=== PATIENT | female | born 1990 | race Caucasian/White ===

== ENCOUNTER 2024-09-04 15:08 | Inpatient (IN) | payer OTHER, SELFPAY ==
[2024-09-04] VITALS (7 sets, daily range): BP systolic 126–193; BP diastolic 68–110; BMI 42.9
--- NOTE | 2024-09-04 12:49 | ED.GENMED ---
History of Present Illness
General
Chief Complaint: Breathing Problem
Source: patient
Exam Limitations: none
Time Seen by Provider: 09/04/24 12:40
Nursing documentation reviewed up to this point in time: agreed with
History of Present Illness
History of Present Illness:
33-year-old female with a past medical history of asthma, hypothyroidism, ADHD, bipolar disorder obesity who presents to the emergency department for evaluation of shortness of breath. Patient reports notable recent history of admission through
[facility] 1 month ago for strep throat and sepsis. She says she was treated with antibiotics and completed a full course of Augmentin. She also completed a course of steroids. After that hospitalization she had rebound sore throat
and went to an ENT last week was told she needed her tonsils removed was started on the steroid pack which improved her sore throat. Over the past week however despite taking steroids for sore throat she reports her asthma has been acting up and
she has been using her albuterol more frequently. She says that she is having frequent coughing, wheezing and shortness of breath. Today she says that she felt that she could not breathe despite using multiple albuterol nebulizers. She went to
see her primary care physician and was told that she should come to the emergency room. Aside from coughing, wheezing, shortness of breath she reports that she has had some nasal congestion recently and postnasal drip. She says that she has had
some tightness in her chest but no chest pain. She denies any fever since initial admission last month for strep throat. She denies any swelling or pain in the legs. She denies any other complaints.
Review of Systems
Review of Systems
All Other Systems: ROS reviewed and negative except as documented in HPI and ROS
Constitutional: Denies fever or chills
EENT: Reports other (Congestion and postnasal drip); Denies sore throat (Sore throat has resolved)
Respiratory: Reports cough and trouble breathing
Cardiac: Denies chest pain or palpitations
ABD/GI: Denies abdominal pain, nausea or vomiting
Musculoskeletal: Denies edema
Phy Exam
Physical Exam
Physical Exam:
General: Awake, alert, oriented x3; anxious appearing and tremulous but in no acute distress
Head: Normocephalic, atraumatic
Eyes: Conjunctiva normal
Throat: Airway intact, handling secretions, no tonsillar erythema or exudate noted
Neck: Trachea midline, no JVD
Lungs: Patient has mild tachypnea, normal pulse ox, frequent coughing and occasional expiratory wheeze on lung auscultation
Heart: Tachycardia with ostensibly regular rhythm, no murmurs, gallops, or rubs
Neuro: No gross deficits; tremulous
Skin: no rash
Extremities: No edema in extremities, warm and well-perfused
Scores
Heart Failure Risk
Heart Failure Risk Score: Not Applicable
Heart Score for Chest Pain Patients
STEMI patient?: Not applicable
Withdrawal Assessment of Alcohol
Withdrawal Assessment Completed?: Not applicable
Course
Orders/Labs/Results
Orders:
Orders
09/04/24 Breakfast
Regular
At Your Request: Full Participation
09/04/24 12:15
Electrocardiogram (*1) Urgent
Reason for Study: Tachycardia
EKG- Treatment ONCE
09/04/24 12:40
Test Result ONCE
09/04/24 12:46
COVID-19 Antigen Urgent
Source: Nasal Swab
Complete Blood Count/With Diff Urgent
Comprehensive Metabolic Panel Urgent
D-Dimer Urgent
HCG, Serum Qualitative Screen Urgent
Magnesium Urgent
Influenza A+B Rapid Molecular Urgent
CARLOS ENRIQUE Source: Nasal Swab
Specimen Description:
09/04/24 12:49
0.9% Sodium Chloride 1000 ml [Nss] 1,000 ml IV BOLUS
09/04/24 12:54
CR Chest Portable - 1 View Urgent
Comment:
Reason For Exam: sob
Reason Study Needs to be Portable: Unable to Transport
09/04/24 12:57
MethylPREDNISolone PF [Solu-Medrol Pf] 125 mg IV NOW STA
09/04/24 13:00
Venous Blood Gas Urgent
%Oxygen/Room Air: 96
09/04/24 13:01
Lorazepam [Ativan] 0.5 mg IV NOW STA
09/04/24 13:46
Magnesium Sulfate 2 Gram/50 ml [Magnesium Sulfate] 2 gram in 50 ml IV NOW
09/04/24 14:17
Albuterol Nebs [Ventolin Nebules] 2.5 mg INH R NOW STA
Lidocaine HCl Mpf [Xylocaine 4% Mpf] 2 ml NEB ONCE ONE
09/04/24 14:40
Admit/Transfer Patient As Directed
Co-Sign Provider:
Level of Care: Inpatient admission
Assign to:: Telemetry
Physician / Group: Sabrina
Diagnosis: Asthma Exacerbation
Reason for Telemetry: Arrhythmia
Date to Stop Telemetry: 09/07/24
Time to Stop Telemetry: 11:00
Reason for Hospitalization: Steroids, Nebs
Expected length of stay greater than two midnights?: Yes
ELOS- Estimated Length of Stay in days: 3
I certify the patient meets the requirements for IP care: Yes
PRN Pain Medication Management As Directed
May give lesser potent ordered pain med per pt: Yes
preference::
Protocol:: Medication orders for pain may be administered in a
manner that supports deferring to patient preference
when the pt is:
- Requesting an ordered lesser potent pain medication.
Least to most potent pain medications are defined
as: acetaminophen < NSAID < tramadol < opioids
(morphine, oxycodone, hydromorphone).
- Requesting a lesser dose of the same medication IF
ORDERED.
- Requesting a less intrusive route of administration
if both routes are prescribed by the provider (PO <
IV).
09/04/24 14:42
Code Status As Directed
Resuscitation Status: Full Code
09/04/24 18:42
Acetaminophen [Tylenol] 650 mg PO Q4HPRN PRN
Benzonatate [Tessalon Perles] 200 mg PO TID
Enoxaparin Sodium [Lovenox] 40 mg SC QPM
Ipratropium/Albuterol Sulfate [Duoneb] 3 ml INH R Q4HPRN PRN
09/04/24 18:42
Activity As Directed
Activity Level: Out of Bed-Early Mobility
With Assistance
Vital Signs As Directed
Frequency: Per unit guidelines
DX Deep Vein Thrombosis Video Routine
09/04/24 20:00
Amoxicillin 875 mg/Clav 125 mg [Augmentin 875 mg/125 mg] 1 tablet PO BID
Budesonide [Pulmicort] 0.5 mg INH R BID
Dexamethasone Sod Phosphate [Decadron] 4 mg IV Q8H
Ipratropium/Albuterol Sulfate [Duoneb] 3 ml INH R QID
Oxcarbazepine [Trileptal] 600 mg PO BID
09/04/24 22:00
Clonidine [Catapres] 0.6 mg PO HS
Temazepam [Restoril] 30 mg PO HS
09/05/24 06:00
Basic Metabolic Panel IN AM
Complete Blood Count/No Diff IN AM
TSH Reflex To Free T4 IN AM
Levothyroxine [Synthroid] 100 mcg PO DAILY @ 0600
09/05/24 08:00
Clonazepam [Klonopin] 1 mg PO DAILY
Diltiazem Extended Release [Cardizem Cd] 180 mg PO DAILY
Famotidine [Pepcid] 40 mg PO DAILY
Montelukast Sodium [Singulair] 10 mg PO DAILY
09/07/24 11:00
DC Protocol for Telemetry ONCE
Abnormal Lab Results
09/04/24 09/04/24
12:46 13:00
WBC 21.2 H 10^3/uL
(4.8-10.8)
MCHC 32.5 L g/dL
(33.0-37.0)
RDW 14.8 H %
(11.5-14.5)
Plt Count 409 H 10^3/uL
(130-400)
Abs Immat Gran (auto) 0.4 H 10^3/uL
(0-0.05)
Absolute Neuts (auto) 12.8 H 10^3/uL
(1.4-6.5)
Absolute Lymphs (auto) 6.6 H 10^3/uL
(1.2-3.4)
Absolute Monos (auto) 1.2 H 10^3/uL
(0.1-0.6)
Immature Gran % 1.7 H %
(0-0.5)
VBG pH 7.53 H
(7.32-7.43)
VBG pCO2 27 L mmHg
(35-48)
VBG pO2 198 H mmHg
(30-50)
Chloride 109 H mmol/L
(98-107)
Carbon Dioxide 18 L mmol/L
(22-30)
09/04/24 12:46
09/04/24 12:46
Vital Signs
Initial and Last Documented VS:
Initial Vital Signs
Temp Pulse Resp BP Pulse Ox
37.0 C 150 18 193/110 98
09/04/24 12:11 09/04/24 12:11 09/04/24 12:11 09/04/24 12:11 09/04/24 12:11
Last Documented Vital Signs
Temp Pulse Resp BP Pulse Ox
37.0 C 123 20 163/107 95
09/04/24 12:11 09/04/24 20:00 09/04/24 20:00 09/04/24 19:39 09/04/24 20:00
MDM/Problems Addressed
Differential Diagnosis Includes:
Asthma exacerbation, pneumonia, pneumothorax, pulmonary embolism
MDM/Problems Addressed:
33-year-old female presents to the emergency department for evaluation of shortness of breath with coughing and wheezing for the past week�acutely worse today and required multiple rounds of albuterol at home. She arrives to us hypertensive with a
blood pressure of 193/110; she is tachycardic with heart rate in the 140s; she is tachypneic breathing in the mid 20s; her pulse ox is normal and she has no fever. Her physical exam is as documented above. I suspect that her marked tachycardia and
tremulousness is due to heavy albuterol use today. EKG shows sinus tachycardia. Will place an IV send labs including a CBC and a CMP, hCG; send viral swabs. Will check D-dimer. Will check stat chest x-ray. Hold on additional albuterol as she
has minimal wheezing at this point. Will treat with IV steroid. Will provide some fluids. Monitor very closely and reassess after the above.
Labs reviewed: CBC shows a leukocytosis to 21 in the setting of known recent steroid use. Her VBG is consistent with hyperventilation�pH 7.53 with a pCO2 of 27. She does appear quite anxious we will treat with some Ativan. Chest x-ray reviewed by
me shows no pneumonia, pneumothorax or other acute pathology. Continue to monitor pending rest of workup.
D-dimer negative. CMP shows mild metabolic acidosis with bicarb of 18. COVID and flu swabs are negative. Clinical reassessment patient coughing again still having scattered wheezing, once again tachypnea/hyperventilation. She still has
tachycardia but this has improved; she says she has tachycardia at baseline. Will give additional albuterol at this point as heart rate has improved and she again has some scattered wheezing. I do wonder if this is a mixed picture as well as she
has had postnasal drip and I think a lot of the coughing could be from upper airway irritation. Can trial lidocaine neb to see if this provides relief. I think there is also component of panic/anxiety/hyperventilation. I do think with her
acid-base abnormalities, continued tachypnea and marked tachycardia she should be admitted for continued treatment. Discussed case with hospitalist.
Chronic conditions affecting care:
Asthma
Acute Exacerbation and/or Progression of Chronic Illness:
Hypertensive
Acute Exacerbation and/or Progression of Chronic Illness: HTN
*Radiology
Radiology exam reviewed: preliminary read by ED provider and radiology read reviewed
*Pulse Oximetry
Patient hypoxic: no
*EKG
Interpreted by ED Provider?: Yes
Heart Rate: 144
Rate: tachycardiac
Rhythm: sinus and sinus tachycardia
Vance: normal axis
Interval: normal interval
QRS Pattern: normal QRS
Ischemia: non-specific ST changes
*Critical Care Note
Total Time (30-74mins, 75-104mins- exclusive of procedures): Not Applicable
Data Reviewed
Source: patient
Patient Management
Discussion with other providers: Hospitalist (Discussed with hospitalist)
Escalation/DeEscalation of care consider admission/obs:
Admission indicated
ED Attending Note
-
Portions of this chart may have been created with voice recognition software.� Occasional wrong word or��sound alike� substitutions may have occurred due to the inherent limitations of voice recognition software.
Discharge Plan
Departure
Patient Disposition: Admit
Date of Disposition: 09/04/24
Time of Disposition: 14:20
Admit to doctor: Sabrina
Presentation/result/management discussed w/ accepting MD/DO: Hospitalist
Discharge Problem:
Asthma exacerbation, Anxiety, Post-nasal drip, Tachycardia
Interventions
Interventions:
*Risk Screen - Suicide Last Done: 09/04/24 12:14
*General Assessment Last Done: 09/04/24 12:44
*Neglect/Abuse Screening Last Done: 09/04/24 12:14
*ED- Fall Risk Assessment Last Done: 09/04/24 12:44
*ED COVID-19 Vaccine History Last Done: 09/04/24 12:44
ED- Cardiac Assessment Last Done: 09/04/24 12:46
ED- Pulmonary Assessment Last Done: 09/04/24 12:46
[2024-09-04 13:01] LABS: COVID-19 Antigen Negative (Negative)
[2024-09-04] MEDS: SOLU-MEDROL PF 125 MG IV (13:15)
[2024-09-04] MEDS: NSS 1000 IV (13:15)
[2024-09-04] MEDS: ATIVAN 0.5 MG IV (13:15)
[2024-09-04 13:17] LABS: Venous Blood Gas B.E. 1.1 mmol/L (-4 to +4); Venous Blood Gas HCO3 22.6 mmol/L (22-27); Venous Blood Gas O2 Sat % 99.5 %; Venous Blood Gas pCO2 27 mmHg (35-48); Venous Blood Gas pH 7.53 (7.32-7.43); Venous Blood Gas pO2 198 mmHg (30-50)
[2024-09-04 13:17] LABS: % Basophils 0.4 % (0-2); % Eosinophils 0.7 % (0-6); % Immature Granulocytes 1.7 % (0-0.5); % Lymphocytes 30.9 % (20.5-51.1); % Monocytes 5.7 % (1.7-9.3); % Neutrophils 60.6 % (42.2-75.2); Absolute Basophils 0.1 10^3/uL (0-0.2); Absolute Eosinophils 0.2 10^3/uL (0-0.7); Absolute Immature Granulocytes 0.4 10^3/uL (0-0.05); Absolute Lymphocytes 6.6 10^3/uL (1.2-3.4); Absolute Monocytes 1.2 10^3/uL (0.1-0.6); Absolute Neutrophils 12.8 10^3/uL (1.4-6.5); Hematocrit 39.7 % (37.0-47.0); Hemoglobin 12.9 g/dL (12.0-16.0); Mean Corp Hgb Conc. 32.5 g/dL (33.0-37.0); Mean Corpuscular Hgb 29.5 pg (27.0-31.0); Mean Corpuscular Volume 90.6 fL (81.0-99.0); Mean Platelet Volume 8.9 fL (7.4-10.4); Nucleated Red Blood Cells % 0 %; Platelet Count 409 10^3/uL (130-400); Red Blood Cell Count 4.38 10^6/uL (4.20-5.40); Red Cell Dist. Width 14.8 % (11.5-14.5); White Blood Cell Count 21.2 10^3/uL (4.8-10.8)
[2024-09-04 13:31] LABS: D-Dimer < 0.27 ug/mlFEU (0.00-0.50)
[2024-09-04 13:35] LABS: HCG, Serum Qualitative Screen Negative
[2024-09-04 13:40] LABS: ALT (SGPT) 26 U/L (0-35); AST (SGOT) 23 U/L (14-36); Albumin 4.6 g/dl (3.5-5.0); Alkaline Phosphatase 78 U/L (38-126); Blood Urea Nitrogen 16 mg/dl (7-17); Calcium 9.4 mg/dl (8.4-10.2); Carbon Dioxide 18 mmol/L (22-30); Chloride 109 mmol/L (98-107); Glucose 96 mg/dl (70-99); Magnesium 1.7 mg/dl (1.6-2.3); Potassium 3.7 mmol/L (3.5-5.1); Sodium 141 mmol/L (135-145); Total Bilirubin 0.4 mg/dl (0.2-1.3); Total Protein 7.7 g/dl (6.3-8.2); eGFR > 60.00
[2024-09-04] MEDS: MAGNESIUM SULFATE 50 IV (13:50)
--- NOTE | 2024-09-04 14:46 | HPS.HSE ---
Family Physician
-
Family Physician: Bogdan Sharma
Chief Complaint
-
Cough and Shortness of Breath
History of Present Illness
Patient is a 33 y/o female past medical history of asthma, hypothyroidism, bipolar disorder and obesity who presents with persistent cough. Patient reports about one month ago she was admitted at [place] for sepsis secondary to strep throat for
which she completed a coarse of antibiotics and was treated with steroids. Afterwards she developed rebound sore throat at which time she went to urgent care and was also seen by ENT. She was again given antibiotics and steroids. She notes
improvement in her sore throat but reports increased coughing. She notes frequent coughing attacks which cause her to feel short of breath. She expresses concern that this may be related to her asthma. She denies fevers, sweats or chills. She
denies lower extremtiy edema, pain or swelling. She denies chest pain.
Medical History
Past Medical History
Past Medical History: Reports Other
Additional Past Medical History:
Asthma
Sinus Tachycardia
Hypothyroidism
Bipolar Disorder
ADHD
Obesity
Past Surgical History: Reports Other
Additional Past Surgical History:
Cholecystectomy
[place] Teeth
Social History
Tobacco: Former Smoker (Quit 3 years ago)
Family History
Family History: Not pertinent
Allergies / Home Medications
Allergies reflects when Allergies were last updated in [facility].
Home Medications with original date entered in [facility]
Allergy/Medication List:
Allergies
Allergy/AdvReac Type Severity Reaction Status Date / Time
acetaminophen (From Percocet) Allergy Unknown Verified 09/04/24 12:13
hydromorphone (From Dilaudid) Allergy Vomiting Verified 09/04/24 12:13
oxycodone (From Percocet) Allergy Unknown Verified 09/04/24 12:13
Home Medications
amoxicillin 875 mg-potassium clavulanate 125 mg tablet 1 tab PO BID 09/04/24
cholecalciferol (vitamin D3) 125 mcg (5,000 unit) tablet (Vitamin D3) 125 mcg PO DAILY 09/04/24
clonazepam 1 mg tablet 1 mg PO DAILY 09/04/24
clonidine HCl 0.2 mg tablet 0.6 mg PO HS 09/04/24
diltiazem HCl 180 mg capsule,extended release 24 hr 180 mg PO DAILY 09/04/24
famotidine 40 mg tablet (Pepcid) 40 mg PO DAILY 09/04/24
levothyroxine 100 mcg tablet (Synthroid) 100 mcg PO DAILY 09/04/24
methylprednisolone 4 mg tablets in a dose pack (Medrol (Gilberto)) 0 mg PO PER PKG DIR 09/04/24
montelukast 10 mg tablet (Singulair) 10 mg PO DAILY 09/04/24
olopatadine 665 mcg-mometasone 25 mcg/spray nasal spray (Ryaltris) 2 spray intranasal BID 09/04/24
oxcarbazepine 600 mg tablet 600 mg PO BID 09/04/24
temazepam 30 mg capsule 30 mg PO HS 09/04/24
therapeutic multivitamin 1 tab PO DAILY 09/04/24
Review of Systems
-
History Source: Patient
A 12 point ROS was completed and negative except as noted: Yes
Constitutional: Denies Fever or Chills
Respiratory: Reports See HPI
Cardiac: Reports Palpitations; Denies Chest Pain
Physical Exam
Vital Signs
Vital Signs
Temp Pulse Resp BP Pulse Ox
98.6 F 122 18 126/68 95
09/04/24 12:11 09/04/24 13:45 09/04/24 13:30 09/04/24 13:07 09/04/24 13:30
Physical Exam
General: Well Developed, Well Nourished and Obese
HEENT: Anicteric and Moist mucous membranes
Respiratory: Other (Slight tachypnea, Frequent coughing particularly with deep inspiration or prolonged conversation, Occasional expiratory wheeze on exam)
Cardiac: S1/S2, Regular Rhythm and Tachycardia
GI: Soft and Non Tender
Rectal: Deferred by Provider
Musculoskeletal: No Clubbing, No Cyanosis and No Edema
Skin: Warm and Dry
Neuro: Awake, Alert, Oriented and Nonfocal/grossly intact
Psych: Calm
Laboratory Results
-
09/04/24 12:46
09/04/24 12:46
Laboratory Results
Total Bilirubin 0.4 mg/dl (0.2-1.3) 09/04/24 12:46
AST 23 U/L (14-36) 09/04/24 12:46
ALT 26 U/L (0-35) 09/04/24 12:46
Alkaline Phosphatase 78 U/L (38-126) 09/04/24 12:46
Data Reviewed
-
Diagnostic Radiology: Report Reviewed by me
Lab Data: Labs Reviewed by me
Impression/Plan
-
Acute Exacerbation of Cough-Variant Asthma
-Continue Decadron 4mg q8H
-Continue DuoNeb QID and PRN
-Change Dulera to Pulmicort Neb
-Add Tessalon Perles TID
Leukocytosis, possibly related to steroids
-Continue to trend
-Monitor for fevers - Obtain cultures if develops fever
Recent Tonsillitis
-Continue Augmentin as preciously prescribes
Sinus Tachycardia
-Continue diltiazem as prior to admission
Hypothyroidism
-Continue levothyroxine
Bipolar Disorder
-Continue Clonazepam, Temazepam and Oxcarbazepine
Morbid Obesity due to Excess Calories
-Affects all aspects of care
DVT proph: Lovenox
Code Status: Full Code
[2024-09-04] MEDS: VENTOLIN NEBULES 2.5 MG INH (15:40)
--- NOTE | 2024-09-04 15:53 | W.PN.UPDATE ---
Update Note
Progress Note Update
This is an addendum to H&P written by Emma Weir on 09/04/2024.� Patient seen and examined independently with PA.
33-year-old female past medical history of asthma, hypothyroidism, ADHD, bipolar disorder, obesity presenting with shortness of breath, cough and wheezing.� Has postnasal drip and nasal congestion.
Admitted to [facility] 1 month ago for strep throat and sepsis treated with antibiotic and steroid.� Afterwards had rebound sore throat went to ENT and told she needed her tonsils removed and was treated with steroids again. Curently still on Abx.�
Blood pressure initially 190s.� Patient tachycardic.
Chest x-ray shows no acute process.
Labs show leukocytosis.� VBG shows acute respiratory alkalosis due to tachypnea.� COVID and flu are negative.
Patient with acute asthma exacerbation.
Magnesium, methylprednisolone given.
DuoNebs, dexamethasone. Continue Abx for tonsillitis.�
[2024-09-04] MEDS: DECADRON 4 MG IV (19:14)
[2024-09-04] MEDS: TESSALON PERLES 200 MG PO (19:14)
[2024-09-04] MEDS: AUGMENTIN 875 MG/125 MG 1 TABLET PO (19:14)
[2024-09-04] MEDS: DUONEB 3 ML INH (19:15)
[2024-09-04] MEDS: TRILEPTAL 600 MG PO (19:34)
[2024-09-04] MEDS: PULMICORT 0.5 MG INH (19:47)
[2024-09-04] MEDS: LAMICTAL 200 MG PO (20:09)
[2024-09-04] MEDS: TESSALON PERLES PO (20:14)
[2024-09-04] MEDS: RESTORIL 30 MG PO (21:01)
[2024-09-04] MEDS: KLONOPIN 1 MG PO (21:01)
[2024-09-04] MEDS: CATAPRES 0.6 MG PO (21:01)
--- NOTE | 2024-09-04 23:14 | PTCARENOTE ---
Receive pt from ER. Pt alert oriented X3, calm, in no resp distress. Pt assist X1 to bed, steady gait. Pt oriented to the room, call richard within reach. Pt's SpO2=96% on RA. Pt w/tachycardia, QQ=009. VU=364/95, T=97.7, RR=20. Pt on S. Tachycardia on
telemonitor. Lungs are clear on physical exam except for some wheezings. Pt states that she experiences mild burning sensation in her throat, but she reports that she doesn't need any medication at this time. Advice the pt to call if she experiences
SOB, or difficulty breathing.
[2024-09-04] MEDS: ROBITUSSIN 100 MG PO (23:20)
[2024-09-05 03:19] VITALS: BP 137/80
[2024-09-05] MEDS: DUONEB 3 ML INH ×3 (04:06→11:25)
[2024-09-05] MEDS: DECADRON 4 MG IV (04:13)
[2024-09-05] MEDS: ROBITUSSIN 100 MG PO (04:17)
[2024-09-05] MEDS: SYNTHROID 100 MCG PO (05:36)
[2024-09-05 07:00] VITALS: BP 152/91
[2024-09-05] MEDS: PULMICORT 0.5 MG INH (07:36)
[2024-09-05 07:47] LABS: Hematocrit 36.6 % (37.0-47.0); Hemoglobin 12.2 g/dL (12.0-16.0); Mean Corp Hgb Conc. 33.3 g/dL (33.0-37.0); Mean Corpuscular Volume 89.9 fL (81.0-99.0); Mean Platelet Volume 9.3 fL (7.4-10.4); Platelet Count 413 10^3/uL (130-400); Red Blood Cell Count 4.07 10^6/uL (4.20-5.40); Red Cell Dist. Width 15.2 % (11.5-14.5); White Blood Cell Count 16.6 10^3/uL (4.8-10.8)
[2024-09-05] MEDS: CARDIZEM CD 180 MG PO (07:55)
[2024-09-05] MEDS: AUGMENTIN 875 MG/125 MG 1 TABLET PO (07:55)
[2024-09-05] MEDS: TESSALON PERLES 200 MG PO (07:55)
[2024-09-05] MEDS: SINGULAIR 10 MG PO (07:56)
[2024-09-05] MEDS: TRILEPTAL 600 MG PO (07:56)
[2024-09-05] MEDS: PEPCID 40 MG PO (07:56)
[2024-09-05] MEDS: LAMICTAL 200 MG PO (07:56)
[2024-09-05 08:47] LABS: Blood Urea Nitrogen 14 mg/dl (7-17); Calcium 9.6 mg/dl (8.4-10.2); Carbon Dioxide 19 mmol/L (22-30); Chloride 107 mmol/L (98-107); Estimated Creatinine Clearance > 125 ml/min; Glucose 123 mg/dl (70-99); Potassium 4.7 mmol/L (3.5-5.1); Sodium 139 mmol/L (135-145); eGFR > 60.00
[2024-09-05 09:03] LABS: Free T4 0.86 ng/dl (0.78-2.19)
--- NOTE | 2024-09-05 10:30 | PTCARENOTE ---
Patient found in family lounge having a panic attack. Hyperventilating and tearful with HR in 170s. Staff assisted patient with calming/breathing techniques. Patient brought back to room. Dr Jarrell made aware of event and ordered 1x dose IV ativan.
Will continue to monitor.
[2024-09-05] MEDS: NSS (PRESERVATIVE FREE) 0.25 ML IV (10:41)
[2024-09-05] MEDS: ATIVAN 0.5 MG IV (10:41)
[2024-09-05 11:00] VITALS: BP 155/95
--- NOTE | 2024-09-05 11:26 | CM ---
recreational resort manager reviewed patient's chart and met with patient and patient states she lives with her spouse in a 1 story home, patient is independent with adl's and ambulation, patient has a nebulizer in home. Home when stable no needs.
PCP: Bogdan Sharma
Pharmacy: [facility]
Plan; Home when stable, no needs.
--- NOTE | 2024-09-05 11:59 | PTCARENOTE ---
Dr Jarrell and nursing saw patient. Discussed patient being medically cleared for DC after pulmonary consult. Dr Jarrell reinforced that patient needs to make sooner appointment with ENT outpatient. Patient verbalized understanding plan of care.
[2024-09-05] MEDS: DECADRON IV (13:18)
--- NOTE | 2024-09-05 13:54 | CON.PUL ---
Consultation
Consultation Request
Date/Time Consultation Requested: 09/05/2024
Date/Time Consultation Performed: 09/05/2024
Requesting Provider: Dr. Jarrell
Performing Provider: Dr. Teto Porras
Reason for Consultation: Exertional dyspnea
Medical History
-
History of Present Illness:
33-year-old woman with past medical history of asthma, hypothyroidism, bipolar disorder, obesity who presents with persistent coughing. Patient reports history of Streptococcus pharyngitis completed course of antibiotics and steroids about a month
ago at [facility].
Apparently after discharge developed again sore throat and she was seen by ENT in the outpatient setting.
Received a second dose of antibiotics and steroids.
Reports increased coughing.
Reports cough paroxysms with subsequent shortness of breath.
There is no reports of fevers, chills, hemoptysis, swallowing problems or GERD.
Denies exertional chest pain.
We were consulted on 09/05/2024 for evaluation of her coughing.
Past Medical History
Past Medical History: Other (See assessment and plan section)
Social History
Tobacco: Former Smoker (Quit 3 years ago)
Alcohol: None
Drug: None
Family History
Family History: Reviewed & Not Pertinent
Allergies / Home Medications
Allergies
Allergy/AdvReac Type Severity Reaction Status Date / Time
acetaminophen (From Percocet) Allergy Unknown Verified 09/04/24 12:13
hydromorphone (From Dilaudid) Allergy Vomiting Verified 09/04/24 12:13
oxycodone (From Percocet) Allergy Unknown Verified 09/04/24 12:13
Home Medications
�Medication �Instructions �Recorded �Confirmed �Last Taken �Type
amoxicillin 875 mg-potassium 1 tab PO BID Infection 09/04/24 09/04/24 09/04/24 History
clavulanate 125 mg tablet
cholecalciferol (vitamin D3) 125 125 mcg PO DAILY Supplement 09/04/24 09/04/24 09/04/24 History
mcg (5,000 unit) tablet (Vitamin
D3)
clonazepam 1 mg tablet 1 mg PO HS Mental Health/Anxiety 09/04/24 09/04/24 09/03/24 History
clonidine HCl 0.2 mg tablet 0.6 mg PO HS Heart 09/04/24 09/04/24 09/03/24 History
Disease/Condition
diltiazem HCl 180 mg 180 mg PO DAILY Heart 09/04/24 09/04/24 09/04/24 History
capsule,extended release 24 hr Disease/Condition
famotidine 40 mg tablet (Pepcid) 40 mg PO DAILY Gastrointestinal 09/04/24 09/04/24 09/04/24 History
Issue
lamotrigine 200 mg tablet 200 mg PO BID Seizures 09/04/24 09/04/24 09/04/24 History
levothyroxine 100 mcg tablet 100 mcg PO DAILY Thyroid 09/04/24 09/04/24 09/04/24 History
(Synthroid)
methylprednisolone 4 mg tablets in 0 mg PO PER PKG DIR inflammation 09/04/24 09/04/24 09/04/24 History
a dose pack (Medrol (Gilberto))
montelukast 10 mg tablet 10 mg PO DAILY asthma 09/04/24 09/04/24 09/04/24 History
(Singulair)
olopatadine 665 mcg-mometasone 25 2 spray intranasal BID Congestion 09/04/24 09/04/24 Unknown History
mcg/spray nasal spray (Ryaltris)
oxcarbazepine 600 mg tablet 600 mg PO BID Seizures 09/04/24 09/04/24 09/04/24 History
temazepam 30 mg capsule 30 mg PO HS Sleep 09/04/24 09/04/24 09/03/24 History
therapeutic multivitamin 1 tab PO DAILY Supplement 09/04/24 09/04/24 09/04/24 History
Review of Systems
-
History Source: Patient
All other systems: Negative unless noted
Vitals / Labs / Diagnostic Testing
Vital Signs
Temp Pulse Resp BP Pulse Ox
98.4 F 102 20 155/95 97
09/05/24 11:00 09/05/24 12:06 09/05/24 12:06 09/05/24 11:00 09/05/24 12:06
Lab Data
09/05/24 06:39
09/05/24 06:39
Microbiology
09/04/24 12:46 Nasal Swab Influenza Types A & B (DEDRICK) - Final
Negative for Influenza A & B, NAAT
Negative results must be combined with clinical observations
and patient history.
Nucleic Acid Amplification test (NAAT)performed on the
[employer] platform.
Diagnostic Testing:
Physical Exam
-
HEENT: Normocephalic
Cardiovascular: S1/S2
Respiratory: Clear, Non-Labored Respirations and Other (Good air movement)
GI: Soft and Non Distended
Neurology: Awake, Alert, Oriented, AO x 3 and No Motor Deficits
Skin: Warm
General: Respiratory Distress (n) and Comfortable
Assessment
-
33-year-old woman with past medical history significant for? Asthma, hypothyroidism, ADHD, bipolar disorder, obesity who presented to the emergency room complaining of shortness of breath, cough and wheezing. Also nasal congestion and postnasal
drip. Patient was placed on steroids, antibiotics for possible pharyngitis and nebulizer therapy. We were consulted for evaluation of her symptoms on 09/05/2024 at the patient request.
Cough/shortness of breath: Possible exacerbation of asthma
Chest x-ray: No acute abnormality-low lung volumes.
No peripheral eosinophilia
Negative influenza/negative COVID
Conditions present prior admission:
History of asthma-cough variant
On singular
Recent history of tonsillitis? [facility]
History of hypothyroidism
Obesity
Bipolar disorder
ADHD
History of sinus tachycardia
Former smoker-quit 3 years ago
Assessment and plan:
Patient main symptom is coughing and sore throat.
Since admission.
Not bronchospastic on exam
Able to speak in full sentences without dyspnea.
-
She carries a diagnosis of asthma-patient has Dulera and Trelegy at home. I advised her to start taking Trelegy starting today.
She has a nebulizer that she can use as needed.
If patient develops coughing with inhaler-advised to call her community health nurse to get budesonide nebulized.
-
Chest x-ray is clear.
Not requiring oxygen supplementation
From the pulmonary perspective no indication for antibiotics.
-
Okay for discharge today.
Advised not to overuse albuterol-she already has some degree of metabolic acidosis. Likely due to albuterol overuse.
Discontinue steroids. No longer bronchospastic. She has been getting steroids for about a month.
No significant peripheral eosinophilia.
She continue to follow with her pulmonary doctor within the next 2 weeks. She follows up with pulmonary group at [place]. Advised to make an appointment as soon as possible.
Continue Singulair for now.
-
Triggers her asthma discussed including obesity, potential obstructive sleep apnea.
With history of bipolar disorder: Vocal cord dysfunction is a diagnosis that should be considered. Agree with outpatient ENT [id number] already has an appointment next Wednesday.
-
Antibiotics at your discretion. Not required from the pulmonary perspective.
-
Okay for discharge from my perspective.
--- NOTE | 2024-09-05 14:28 | W.PN.HOSP.TC ---
Today's Communication/Plan
-
More than 30 minutes spent in discharge including
Final examination of the patient
Summarizing hospital stay
Instructions for continuing care to all relevant caregivers
Preparation of discharge records, prescriptions, and referral forms
Total time spent (in minutes):33mins
Assessment / Plan
Assessment / Plan
NAD
Scleral Anicteric
MMM
No JVD
CTABL
RRR, S1/S2
Morbidly obese, soft, NT, ND, BS+
Warm, Dry
AAOx3
Calm
Suspect what has been ongoing is that she is experiencing some discomfort in her upper airway/throat due to tonsillitis for which she is already on antibiotics for it. This discomfort is causing her to become/feel panic along with/leading to
hyperventilation and eventually full-blown panic attacks which cause shortness of breath and airway wheezing. Acute bronchospasms she makes herself cough.
Acute asthma exacerbation
Resolved
No indication for steroids per pulmonary via [place]
Has been directed by pulmonary to start using Trelegy at home as she has not started using this
If she does not want to use Trelegy can use Symbicort which has been sent to the pharmacy
Tonsillitis continue antibiotics. Outpatient ENT follow-up. Tells me that her appointment has been moved up to 09/11/24
As she requested inpatient ENT follow-up I did place a consult spoke with them via [employer] [facility] recommended to discharge with outpatient ENT follow-up
Hypothyroidism continue levothyroxine
Bipolar disorder
Continue clonazepam temazepam oxcarbazepine
Outpatient psychiatry follow-up
Morbid obesity due to excess calories
Dietary lifestyle modification
Consider GLP-1 in outpatient
Consider bariatric follow-up as an outpatient next
DC home
Anticipated Discharge: Today
Subjective/Interval History
-
Date of Service: September 05, 2024
Seen and examined. No new complaints. No acute overnight events.
Tolerating secretions well along with diet well
Objective Data
-
Labs:
Laboratory Results
09/05/24
06:39
WBC 16.6 H
Hgb 12.2
Hct 36.6 L
Plt Count 413 H
Sodium 139
Potassium 4.7 D
Chloride 107
Carbon Dioxide 19 L
BUN 14
Creatinine 0.7
Glucose 123 H
Calcium 9.6
Vital Signs:
Vital Signs
Temp Pulse Resp BP Pulse Ox
98.4 F 102 20 155/95 97
09/05/24 11:00 09/05/24 12:06 09/05/24 12:06 09/05/24 11:00 09/05/24 12:06
I&O
09/04/24 09/05/24 09/06/24
06:59 06:59 06:59
Intake Total 480 / 480
Balance 480 / 480
--- NOTE | 2024-09-05 14:39 | W.DCSUMMARY ---
Discharge Summary
Discharge Data
Date of Admission: 09/04/24
Date of Discharge: 09/05/24
-
Pending Results: No
Hospital Course
33 y/o female past medical history of asthma, hypothyroidism, bipolar disorder and obesity who presents with persistent cough
Presented with persistent cough found to have a and a respiratory alkalosis along with asthma exacerbation. Improved symptomatology without wheezing on exam the following day. Suspect component of panic attack hyperventilation as there is concern
for discomfort in the throat as she was recently diagnosed with sore throat followed by rebound tonsillitis now currently on antibiotics. This discomfort in the throat causes anxiety eventually leads to panic attack with associated hyperventilation
and acute bronchospasms leading to the wheezing. Per pulm no steroids, start home trelegy.. Have strongly encouraged ENT follow-up as an outpatient and to bring the appointment forward to be seen sooner for evaluation of tonsillectomy. Pulmonary
evaluated no further recommendations outpatient PFTs.
Discharge Plan
-
Patient Disposition: Home (Routine Discharge)
Discharge Diagnosis/Procedures: Asthma exacerbation
Hyperventilation
Panic attacks
Condition: Good
Diet: As tolerated
Activity: As tolerated
Activity Restrictions/Additional Instructions:
Presented with persistent cough found to have a and a respiratory alkalosis along with asthma exacerbation. Improved symptomatology without wheezing on exam the following day. Suspect component of panic attack hyperventilation as there is concern
for discomfort in the throat as she was recently diagnosed with sore throat followed by rebound tonsillitis now currently on antibiotics. This discomfort in the throat causes anxiety eventually leads to panic attack with associated hyperventilation
and acute bronchospasms leading to the wheezing. Per pulm no steroids, start home trelegy.. Have strongly encouraged ENT follow-up as an outpatient and to bring the appointment forward to be seen sooner for evaluation of tonsillectomy. Pulmonary
evaluated no further recommendations outpatient PFTs.
Referrals:
Bogdan Sharma DO [Family Provider, Family Practice]
Additional Discharge Medication Instructions: Please start taking symbicort OR trelegy. Do not take both together, only use one or the other.
Prescriptions:
New
benzonatate 100 mg Capsule
200 mg PO TID Qty: 20 0RF
budesonide-formoterol [Symbicort] 160-4.5 mcg/actuation HFA aerosol inhaler
2 puff inhalation Q12H Qty: 10.2 0RF
Continued
diltiazem HCl 180 mg capsule,extended release 24hr
180 mg PO DAILY
clonazepam 1 mg Tablet
1 mg PO HS
levothyroxine [Synthroid] 100 mcg Tablet
100 mcg PO DAILY
temazepam 30 mg Capsule
30 mg PO HS
oxcarbazepine 600 mg Tablet
600 mg PO BID
montelukast [Singulair] 10 mg Tablet
10 mg PO DAILY
Ryaltris 665-25 mcg/spray [place],Non-Aerosol
2 spray INTRANASAL BID
famotidine [Pepcid] 40 mg Tablet
40 mg PO DAILY
therapeutic multivitamin Tablet
1 tab PO DAILY
clonidine HCl 0.2 mg Tablet
0.6 mg PO HS
amoxicillin-pot clavulanate 875-125 mg Tablet
1 tab PO BID
Rx Instructions:
for 10 days starting 08/28/24
cholecalciferol (vitamin D3) [Vitamin D3] 125 mcg (5,000 unit) Tablet
125 mcg PO DAILY
lamotrigine 200 mg Tablet
200 mg PO BID
Discontinued
methylprednisolone [Medrol (Gilberto)] 4 mg Tablets,Dose Pack
0 mg PO PER PKG DIR
Discharge Orders:
Discharge Patient (As Directed); Ordered 09/05/24
Ordered By: Rey Jarrell
Discharge Date and Time
Print Language: ARMENIAN
== END 2024-09-05 14:45 | disposition home or self-care (01) | DRG 202 ==
LOC: 4 EAST ACU 15:08
PROVIDERS: Physician Assistant Medical; ADMITTING PHYSICIAN Hospitalist; ATTENDING PHYSICIAN Hospitalist; CONSULT PHYSICIAN Internal Medicine Critical Care Medicine; EMERGENCY PHYSICIAN Emergency Medicine; FAMILY PHYSICIAN Family Medicine
DX: J45.901 Unspecified asthma with (acute) exacerbation (principal); E87.4 Mixed disorder of acid-base balance; Z68.41 Body mass index [BMI] 40.0-44.9, adult; F41.0 Panic disorder [episodic paroxysmal anxiety]; E03.9 Hypothyroidism, unspecified; F31.9 Bipolar disorder, unspecified; Z79.890 Hormone replacement therapy; E66.01 Morbid (severe) obesity due to excess calories; F90.9 Attention-deficit hyperactivity disorder, unspecified type; Z11.52 Encounter for screening for COVID-19; Z87.891 Personal history of nicotine dependence; J03.90 Acute tonsillitis, unspecified
CPT/HCPCS: 71045; 80048; 80053; 82805; 83735; 84439; 84443; 84703; 85025; 85027; 85379; 87502; 87811; 93005; 94640; 96361; 96365; 96375